=== PATIENT | female | born 2000 | race Caucasian/White ===

== ENCOUNTER 2021-09-02 06:15 | Inpatient (IN) ==
[2021-09-02] MEDS ORDERED: BUTORPHANOL 2 MG/ML VIAL IV PRN (06:31)
[2021-09-02] MEDS ORDERED: ONDANSETRON 4 MG/2 ML VIAL IV PRN ×2 (06:31→23:01)
[2021-09-02] MEDS ORDERED: OXYTOCIN/LR 20 UNIT/1,000 ML BAG IV SCH (07:00)
[2021-09-02] MEDS ORDERED: LACTATED RINGERS 1,000 ML IV SCH ×2 (07:00→23:30)
[2021-09-02 07:34] LABS: Basophils % 0.3 % (0.0-0.8); Eosinophils # 0.1 10*3/uL (0.0-0.87); Eosinophils % 0.8 % (0.00-10.9); Hematocrit 34.9 VOL% (35.7-47.0); Hemoglobin 11.2 GM/DL (12.0-16.0); Immature Granulocytes % 1.5 %; Immature Granulocytes Absolute 0.21 #; Lymphocytes # 2.1 10*3/uL (1.4-4.0); Lymphocytes % 14.7 % (21.3-54.2); Mean Corpuscular HGB Conc 32.1 GM/DL (32-36); Mean Corpuscular Volume 91.6 FL (87-102); Mean Platelet Volume 11.7 FL (9.6-12.0); Monocytes % 6.1 % (1.7-12.7); Neutrophils % 76.6 % (38.7-73.9); Platelet Count 231 T/CUMM (130-400); Red Blood Count 3.81 MC/CUMM (3.8-5.5); Red Cell Distribution Width 13.7 % (9.3-17.3)
[2021-09-02] MEDS ORDERED: MEPERIDINE 50 MG/1 ML VIAL IV PRN (10:40)
[2021-09-02] MEDS ORDERED: LACTATED RINGERS 1,000 ML IV ONE (12:16)
[2021-09-02] MEDS ORDERED: FAMOTIDINE 20 MG/2 ML VIAL IV ONE (12:16)
[2021-09-02] MEDS ORDERED: ePHEDrine 50 MG/ML VIAL IV PRN (12:16)
[2021-09-02] MEDS ORDERED: CITRIC ACID/SODIUM CITRATE 30 ML UDCUP PO ONE (12:16)
[2021-09-02] MEDS ORDERED: NALOXONE 0.4 MG/ML VIAL IV PRN (12:17)
[2021-09-02] MEDS ORDERED: PROMETHAZINE 25 MG/1 ML VIAL IM ONE (12:17)
[2021-09-02] MEDS ORDERED: diphenhydrAMINE 50 MG/1 ML VIAL IV PRN ×2 (12:17)
[2021-09-02] MEDS ORDERED: hydrOXYzine HCL 25 MG/1 ML VIAL IM PRN (12:17)
[2021-09-02] MEDS: fentaNYL 2 MCG/ROPIV 0.2% EPID 100 ML EPIDURAL SCH ×3 (13:38→23:14)
[2021-09-02 15:13] LABS: Bilirubin,Urine Negative (Negative); Blood, Urine Negative (Negative); Glucose,Urine (UA) Negative (Negative); Ketones,Urine 15 mg/dL (Negative); Mucus,Urine Occasional /LPF (Occasional); Nitrite,Urine Negative (Negative); Protein,Urine Negative; RBC,Urine <1 /HPF (0-4); Squamous Epithelial Cell,Urine Occasional /HPF (0-10); Urine Appearance Clear (Clear); Urine Color Yellow (Yellow); Urine Urobilinogen 0.2 EU/DL (<2.0)
[2021-09-02] MEDS: LACTATED RINGERS 1,000 ML IV SCH ×2 (15:48→23:14)
[2021-09-02] MEDS ORDERED: ACETAMINOPHEN 500 MG TABLET PO PRN (19:47)
[2021-09-02] MEDS ORDERED: CLINDAMYCIN INJ 900 MG/50 ML PREMIX IV SCH (20:00)
[2021-09-02] MEDS ORDERED: SODIUM BICARBONATE 10 MEQ/10 ML SYRINGE IV ONE (21:59)
[2021-09-02] MEDS ORDERED: LIDOCAINE MPF 2% /EPI 20 ML VIAL ONE (22:00)
[2021-09-02] MEDS ORDERED: TRANEXAMIC ACID 1,000 MG/10 ML VIAL ONE (22:02)
[2021-09-02] MEDS ORDERED: OXYTOCIN/LR 20 UNIT/1,000 ML BAG IV ONE ×2 (22:02→23:01)
[2021-09-02] MEDS ORDERED: miSOPROStoL 200 MCG TABLET ONE (22:02)
[2021-09-02] MEDS ORDERED: SODIUM CHLORIDE 0.9% 0 ML IV ONE (22:02)
[2021-09-02] MEDS ORDERED: METHYLERGONOVINE 0.2 MG/1 ML AMP ONE (22:03)
[2021-09-02] MEDS ORDERED: CARBOPROST TROMETHAMINE 250 MCG/ML AMP IM ONE (22:03)
[2021-09-02] MEDS ORDERED: ONDANSETRON 4 MG/2 ML VIAL ONE (22:04)
[2021-09-02] MEDS ORDERED: KETOROLAC 30 MG/1 ML VIAL ONE (22:06)
[2021-09-02] MEDS ORDERED: ACETAMINOPHEN INJ 1,000 MG/100 ML VIAL IV ONE (22:06)
[2021-09-02] MEDS ORDERED: DEXAMETHASONE 4 MG/1 ML VIAL ONE ×2 (22:06→22:58)
[2021-09-02] MEDS ORDERED: PHENYLEPHRINE 1 MG/10 ML SYRINGE IV ONE (22:35)
[2021-09-02 22:42] LABS: Cord Arterial Blood HCO3 22.5 MMOL/L
[2021-09-02 22:45] LABS: Cord Venous Blood HCO3 22.4 MMOL/L; Cord Venous Blood PCO2 48.9 MMHG; Cord Venous Blood PO2 20.5
[2021-09-02] MEDS ORDERED: LIDOCAINE 2% 5 ML VIAL ONE (22:58)
[2021-09-02] MEDS ORDERED: ACETAMINOPHEN 325 MG TABLET PO PRN (23:01)
[2021-09-02] MEDS ORDERED: RHO(D) IMMUNE GLOBULIN 300 MCG SYRINGE IM ONE (23:01)
[2021-09-03] MEDS: oxyCODONE/ACETAMINOPHEN 5-325 MG TABLET PO PRN ×3 (01:35→17:33)
[2021-09-03] MEDS: KETOROLAC 30 MG/1 ML VIAL IV SCH ×3 (05:30→18:20)
[2021-09-03] MEDS: CLINDAMYCIN INJ 900 MG/50 ML PREMIX IV SCH ×2 (05:42→13:17)
[2021-09-03 05:49] LABS: Basophils % 0.1 % (0.0-0.8); Hematocrit 30.3 VOL% (35.7-47.0); Hemoglobin 9.8 GM/DL (12.0-16.0); Immature Granulocytes % 1.1 %; Immature Granulocytes Absolute 0.25 #; Lymphocytes % 4.3 % (21.3-54.2); Mean Corpuscular HGB Conc 32.3 GM/DL (32-36); Mean Corpuscular Volume 92.4 FL (87-102); Mean Platelet Volume 12.2 FL (9.6-12.0); Monocytes % 2.5 % (1.7-12.7); Platelet Count 212 T/CUMM (130-400); Red Blood Count 3.28 MC/CUMM (3.8-5.5); Red Cell Distribution Width 13.8 % (9.3-17.3); White Blood Count 23.3 T/CUMM (4-12)
[2021-09-03 06:13] LABS: Eosinophils 1 % (0-10); Hypochromia 1+; Lymphocytes 9 % (20-55); Microcytosis 1+; Platelet Estimate Adequate; Segmented Neutrophils 90 % (50-85); Total Cells Counted 100
[2021-09-03] MEDS: MAGNESIUM HYDROXIDE SUSP 30 ML UDCUP PO PRN (08:12)
[2021-09-03] MEDS: MULTIVITAMIN (PRENATAL) TABLET PO SCH (08:12)
[2021-09-03] MEDS: SIMETHICONE CHEW 80 MG TABLET PO PRN (08:13)
[2021-09-03] MEDS: DOCUSATE SODIUM 100 MG CAPSULE PO SCH ×2 (08:13→23:30)
[2021-09-03] MEDS ORDERED: RHO(D) IMMUNE GLOBULIN 300 MCG SYRINGE IM ONE (11:50)
[2021-09-03] MEDS: IBUPROFEN 800 MG TABLET PO PRN (17:31)
[2021-09-04] MEDS: oxyCODONE/ACETAMINOPHEN 5-325 MG TABLET PO PRN ×3 (00:05→12:24)
[2021-09-04] MEDS: IBUPROFEN 800 MG TABLET PO PRN (06:50)
[2021-09-04] MEDS: DOCUSATE SODIUM 100 MG CAPSULE PO SCH (08:15)
[2021-09-04] MEDS: MULTIVITAMIN (PRENATAL) TABLET PO SCH (08:15)
[2021-09-04] MEDS: MAGNESIUM HYDROXIDE SUSP 30 ML UDCUP PO PRN (08:15)
[2021-09-04] MEDS: SIMETHICONE CHEW 80 MG TABLET PO PRN (08:15)
[2021-09-04 11:45] VITALS: BP 138/64
== END 2021-09-04 13:58 | disposition home or self-care (01) | DRG 788 ==
LOC: N.LD 06:15 → N.OB 09-03 02:10
PROVIDERS: ADMIT Obstetrics & Gynecology; ATTEND Obstetrics & Gynecology
PROC: LDCSECT (ICD-10-PCS; 2021-09-02 22:05)